=== PATIENT | male | born 2000 | race Hispanic/Latino ===

== ENCOUNTER 2021-03-25 17:29 | Emergency (ER) | payer OTHER, SELFPAY ==
[2021-03-25 18:06] VITALS: BP 122/73; PULSE 92; RESP 18; TEMP 39.1; O2SAT 98; BMI 21.1
[2021-03-25 18:36] LABS: COVID19 -Nasal RAPID Negative (Negative)
[2021-03-25 19:13] VITALS: TEMP 38.8
[2021-03-25] MEDS: ACETAMINOPHEN 325 MG TABLET 975 MG PO (19:13)
[2021-03-25 20:24] VITALS: TEMP 37.4
--- NOTE | 2021-03-25 20:30 | ED_ITS ---
HPI - Fever <Bettina Puri PA-C - Last Filed: 03/25/21 20:39> General Chief Complaint: Fever Stated Complaint: lots of body aches Time Seen by Provider: 03/25/21 19:13 Source: patient and family Mode of arrival: Ambulatory Limitations: no limitations History of Present Illness HPI Narrative: 20-year-old male with no reported past medical history presents to the ED with 6 days of fever. Patient endorses fever, chills, sore throat, nasal congestion, cough, all over body aches. Denies nausea, vomiting, abdominal pain, dysuria, lightheadedness, dizziness, syncope. Denies trouble swallowing. Denies exposure to COVID. No one else sick at home Related Data Allergies Allergy/AdvReac Type Severity Reaction Status Date / Time No Known Drug Allergies Allergy Verified 03/25/21 18:06 Review of Systems <Bettina Puri PA-C - Last Filed: 03/25/21 20:39> Constitutional Constitutional: Reports chills, Reports fatigue, Reports fever(s), Denies frequent falls, Denies lethargy and Denies weakness Comments: All over body pain Eyes Eyes: Denies change in vision, Denies eye discharge, Denies irritation and Denies loss of vision ENT Ears, Nose, Mouth, and Throat: Denies change in voice, Denies dizziness, Denies otalgia, Denies neck pain, Reports odynophagia, Denies sore throat, Denies throat swelling and Denies tongue swelling Cardiovascular Cardiovascular: Denies chest pain, Denies irregular heart rhythm, Denies lightheadedness, Denies palpitations, Denies dyspnea, Denies dyspnea on exertion and Denies orthopnea Respiratory Respiratory: Denies cough, Denies dyspnea, Denies dyspnea on exertion and Denies wheezing Gastrointestinal Gastrointestinal: Denies abdominal pain, Denies change in bowel habits, Denies diarrhea, Denies nausea, Reports odynophagia and Denies vomiting Musculoskeletal Musculoskeletal: Denies neck pain and Denies numbness Integumentary/Breasts Skin/Breast: Denies pruritus, Denies erythema, Denies rash and Denies wounds Neurologic Neurologic: Denies behavioral changes, Denies confusion, Denies dizziness, Denies frequent falls, Denies loss of vision, Denies numbness and Denies weakness Psychiatric Psychiatric: Denies anxiety, Denies behavioral changes, Denies confusion, Denies depression, Denies homicidal ideation and Denies suicidal ideation Endocrine Endocrine: Reports fatigue, Denies flushing and Denies palpitations Hematologic/Lymphatic Hematologic/Lymphatic: Denies easy bruising Allergic/Immunologic Allergic/Immunologic: Denies urticaria, Denies throat swelling, Denies tongue swelling and Denies wheezing Patient History <Bettina Puri PA-C - Last Filed: 03/25/21 20:39> Social History Smoking Status: Former smoker Smoking Status: Former smoker tobacco type: cigarettes alcohol intake frequency: a few times a week Alcohol type: beer Substance Use Type: does not use Exam <Bettina Puri PA-C - Last Filed: 03/25/21 20:39> Initial Vital Signs Initial Vital Signs: Vital Signs Temperature 102.4 F H 03/25/21 18:06 Pulse Rate 92 H 03/25/21 18:06 Respiratory Rate 18 03/25/21 18:06 Blood Pressure 122/73 03/25/21 18:06 Pulse Oximetry 98 03/25/21 18:06 Const General: cooperative HENMT Head: normocephalic and atraumatic Ears: external ears normal and TM's normal bilaterally Nose: external nose normal and nasal discharge Face and sinus: sinuses nontender, face symmetric, no sinus tenderness and No dry mucous membranes Mouth: oral mucosae normal and moist mucous membranes Teeth and gingiva: dentition normal Throat: posterior oropharynx normal, tonsils normal, uvula midline and other (No tonsillar exudates, erythema, swelling) Eyes General: appearance normal, both eyes and all related structures Eyelids: eyelids normal Conjunctivae: conjunctivae normal Sclera: sclerae normal Pupils: PERRL EOM: EOM intact bilaterally Neck Neck: normal visual inspection, trachea midline, No lymphadenopathy, No midline deformity and No JVD Lymphatic: No lymphedema and No lymphadenopathy Chest Chest: normal inspection of the chest Resp Effort & Inspection: normal respiratory effort, able to speak in complete sentences, no respiratory distress and no use of accessory muscles Auscultation: clear to auscultation bilaterally, no rales, no rhonchi and no wheezes Cardio Rate: regular rate Rhythm: regular rhythm Heart Sounds: no click, no gallops, no murmurs and no rubs Pulses: normal peripheral pulses GI Inspection: non-distended Palpation: soft, no hepatosplenomegaly, No guarding, No pulsatile mass and No tender Auscultation: normal bowel sounds Back/Spine/Pelvis Back: No CVA tenderness Cervical Spine: cervical ROM normal and No pain with cervical ROM Thoracic/Lumbar Spine: thoracic and lumbar spine normal to inspection Skin General: no rashes or lesions noted, No jaundice and No petechiae Neuro General: patient alert, patient oriented x3, gait normal and no focal motor deficits Speech: speech normal Extrem General: full ROM, no clubbing, cyanosis or edema, no pedal edema and no calf tenderness Psych Appearance: well kempt Mental Status: mental status grossly normal Attitude: cooperative Thought Content: normal and suicidality Judgment: judgment good <Lisa Cleary MD - Last Filed: 03/26/21 00:06> Initial Vital Signs Initial Vital Signs: Vital Signs Temperature 102.4 F H 03/25/21 18:06 Pulse Rate 92 H 03/25/21 18:06 Respiratory Rate 18 03/25/21 18:06 Blood Pressure 122/73 03/25/21 18:06 Pulse Oximetry 98 03/25/21 18:06 Course <Bettina Puri PA-C - Last Filed: 03/25/21 20:39> Orders Ordered: ED Orders 03/25/21 18:09 COVID19 -Nasal swab/Pre-Proc Stat 03/25/21 19:15 Respiratory Panel (Film Array) Stat Discontinued Medications Acetaminophen (Acetaminophen 325 Mg Tablet) 975 mg PO NOW ONE Stop: 03/25/21 19:10 Last Admin: 03/25/21 19:13 Dose: 975 mg Documented by: RONNIE Vital Signs Vital signs: Vital Signs - 8 hr 03/25/21 18:06 03/25/21 19:13 03/25/21 20:24 Temperature 102.4 F H 102 F H 99.3 F Pulse Rate 92 H Respiratory Rate 18 Blood Pressure 122/73 Pulse Oximetry 98 03/25/21 20:59 03/25/21 23:53 Temperature 98.5 F Pulse Rate 97 H 73 Respiratory Rate Blood Pressure 117/67 119/72 Pulse Oximetry 97 98 <Lisa Cleary MD - Last Filed: 03/26/21 00:06> Orders Ordered: ED Orders 03/25/21 18:09 COVID19 -Nasal swab/Pre-Proc Stat 03/25/21 19:15 Respiratory Panel (Film Array) Stat Discontinued Medications Acetaminophen (Acetaminophen 325 Mg Tablet) 975 mg PO NOW ONE Stop: 03/25/21 19:10 Last Admin: 03/25/21 19:13 Dose: 975 mg Documented by: RONNIE Vital Signs Vital signs: Vital Signs - 8 hr 03/25/21 18:06 03/25/21 19:13 03/25/21 20:24 Temperature 102.4 F H 102 F H 99.3 F Pulse Rate 92 H Respiratory Rate 18 Blood Pressure 122/73 Pulse Oximetry 98 03/25/21 20:59 03/25/21 23:53 Temperature 98.5 F Pulse Rate 97 H 73 Respiratory Rate Blood Pressure 117/67 119/72 Pulse Oximetry 97 98 MDM - Fever <Bettina Puri PA-C - Last Filed: 03/25/21 20:39> Medical Records Attestation: I reviewed the patient's medical records. Lab Data Attestation: I reviewed the patient's lab results. Labs: Lab Results 03/25/21 03/25/21 Range/Units 18:09 19:15 Chlamy pneumoniae PCR Not detected (Not Detect) Adenovirus (PCR) Not detected (Not Detect) B. pertussis DNA (PCR) Not detected (Not Detecte) B.parapertussis DNA PCR TNP Coronavirus OC43 (PCR) Not detected (Not Detect) Coronavirus HKU1 (PCR) Not detected (Not Detect) Coronavirus 229E (PCR) Not detected (Not Detect) SARS-CoV-2 (PCR) Negative TNP (Negative) Coronavirus NL63 (PCR) Not detected (Not Detect) Human Metapneumovir PCR Not detected (Not Detect) Influenza Type A (PCR) Not detected (Not Detect) Influenza Type B (PCR) Not detected (Not Detect) M. pneumoniae (PCR) Not detected (Not Detect) Parainfluenza 1 (PCR) Not detected (Not Detect) Parainfluenza 2 (PCR) Not detected (Not Detect) Parainfluenza 3 (PCR) Not detected (Not Detect) Parainfluenza 4 (PCR) Not detected (Not Detect) RSV (PCR) Not detected (Not Detect) Entero/Rhino (PCR) Not detected (Not Detect) MDM Narrative Medical decision making narrative: 20-year-old male with no reported past medical history presents to the ED with 6 days of fever. Concern for COVID-19 infection versus influenza versus other respiratory viruses. Will order COVID test, respiratory panel. Will order Tylenol for pain and fever. Will reassess. <Lisa Cleary MD - Last Filed: 03/26/21 00:06> Lab Data Labs: Lab Results 03/25/21 03/25/21 Range/Units 18:09 19:15 Chlamy pneumoniae PCR Not detected (Not Detect) Adenovirus (PCR) Not detected (Not Detect) B. pertussis DNA (PCR) Not detected (Not Detecte) B.parapertussis DNA PCR TNP Coronavirus OC43 (PCR) Not detected (Not Detect) Coronavirus HKU1 (PCR) Not detected (Not Detect) Coronavirus 229E (PCR) Not detected (Not Detect) SARS-CoV-2 (PCR) Negative TNP (Negative) Coronavirus NL63 (PCR) Not detected (Not Detect) Human Metapneumovir PCR Not detected (Not Detect) Influenza Type A (PCR) Not detected (Not Detect) Influenza Type B (PCR) Not detected (Not Detect) M. pneumoniae (PCR) Not detected (Not Detect) Parainfluenza 1 (PCR) Not detected (Not Detect) Parainfluenza 2 (PCR) Not detected (Not Detect) Parainfluenza 3 (PCR) Not detected (Not Detect) Parainfluenza 4 (PCR) Not detected (Not Detect) RSV (PCR) Not detected (Not Detect) Entero/Rhino (PCR) Not detected (Not Detect) MDM Narrative Medical decision making narrative: 20-year-old male with no reported past medical history presents to the ED with 6 days of fever. Concern for COVID-19 infection versus influenza versus other respiratory viruses. Will order COVID test, respiratory panel. Will order Tylenol for pain and fever. Will reassess. Care is assumed. Patient is independently examined. Complaining of fevers and arthralgias for the last 4 days. Respiratory panel is unremarkable with no evidence COVID. Clinical exam does not suggest acute pharyngitis. He has no cervical adenopathy, there is no active joint swelling although he does complain of severe synovitis pain. He has no nuchal rigidity your focal neurologic signs to suggest an acute meningitis. Lungs are unremarkable and consolidated pneumonia is not suspected. Abdomen is benign intra-abdominal abscess is not apparent at this time. He has no dysuria or flank pain to suggest a UTI or pyelonephritis. At this time I do suspect that he does have a viral infection with active synovitis causing his pain. I do not see a life-threatening cause to explain his issues. I have given a dose of p.o. prednisone at 60 mg to help with the active synovitis and pain from that then will recommend Tylenol and ibuprofen. [place] suggested [place] 1 [place] to [place] emergency room with symptoms are worsening in any way. He is safe for home discharge Discharge Plan Departure Patient Disposition: Home Clinical Impression: Viral infection Instructions: DI for Viral Upper Respiratory Infection -- Adult Activity Restrictions/Additional Instructions: Thank you for coming in today Your viral study was unremarkable today. I do not find any evidence of COVID or multiple other respiratory viruses for which we checked. Your clinical exam does not suggest to have acute strep throat, meningitis, pneumonia, appendicitis, gallbladder disease, pyelonephritis or any other life- threatening explanation to explain the fevers. With that aching joints and overall body aches I still suspect that this is a virus, in a young healthy people with powerful immune responses you can still have a very active synovitis reaction(swelling around the tissue of the joints) with multiple viruses. Using 400 mg of ibuprofen (2 [id number] pills) and 1 Tylenol every 6 hours can be very helpful in controlling pain. [place] appointment for 1 week. If your symptoms have entirely resolved you do not need to keep that appointment but if your symptoms continue there is follow-up arranged. In the meantime, things get dramatically worse please feel free to return to the emergency department.
[2021-03-25 20:43] LABS: Adenovirus Not Detected (Not Detect); Coronavirus 229E Not Detected (Not Detect); Coronavirus HKU1 Not Detected (Not Detect); Coronavirus NL 63 Not Detected (Not Detect); Coronavirus OC43 Not Detected (Not Detect); Human Metapneumovirus Not Detected (Not Detect); Human Rhinovirus/Enterovirus Not Detected (Not Detect); Influenza A Not Detected (Not Detect); Influenza B Not Detected (Not Detect)
[2021-03-25 20:44] LABS: Bordetella pertussis Not Detected (Not Detecte); Chlamydophila pneumoniae Not Detected (Not Detect); Mycoplasma pneumoniae Not Detected (Not Detect); Parainfluenza Virus 1 Not Detected (Not Detect); Parainfluenza Virus 2 Not Detected (Not Detect); Parainfluenza Virus 3 Not Detected (Not Detect); Parainfluenza Virus 4 Not Detected (Not Detect); Respiratory Syncytial Virus Not Detected (Not Detect)
[2021-03-25 20:59] VITALS: BP 117/67; PULSE 97; O2SAT 97
[2021-03-25 23:53] VITALS: BP 119/72; PULSE 73; TEMP 36.9; O2SAT 98
[2021-03-26] MEDS: IBUPROFEN 400 MG TABLET PO (00:10)
[2021-03-26] MEDS: predniSONE 20 MG TABLET 60 MG PO (00:10)
[2021-03-26] MEDS: ACETAMINOPHEN 325 MG TABLET PO (00:10)
[2021-03-26 00:18] VITALS: BP 115/70; PULSE 75; RESP 18; TEMP 37.2; O2SAT 99
== END 2021-03-26 00:19 | disposition home or self-care (01) ==
PROVIDERS: Emergency Medicine; Emergency Provider Student in an Organized Health Care Education/Training Program
DX: J06.9 Acute upper respiratory infection, unspecified (principal); Z20.822 Contact with and (suspected) exposure to COVID-19
CPT/HCPCS: 87633; 87635; 99283; C9803